=== PATIENT | male | born 1960 | race Caucasian/White ===

== ENCOUNTER 2024-03-10 09:01 | Emergency (ER) | payer OTHER ==
[~2024-03-10] VITALS: Ht 177.8 cm; Wt 113.3 kg
[2024-03-10 09:05] VITALS: BP 155/95; PULSE 108; RESP 16; TEMP 98; O2SAT 98
[2024-03-10] MEDS ORDERED: TRAM50TA2 PO (09:25)
== END 2024-03-10 09:55 | disposition home or self-care (01) ==
LOC: ER 09:02
DX: M25.511 Pain in right shoulder (principal)
CPT/HCPCS: 99283

== ENCOUNTER 2024-03-20 12:24 | Outpatient (CLI) | payer OTHER | END 2024-03-20 23:59 | disposition home or self-care (01) | LOC: MRI 12:24 | PROVIDERS: ATTEND Family Medicine | DX: S46.001A Unspecified injury of muscle(s) and tendon(s) of the rotator cuff of right shoulder, initial encounter (principal); M25.511 Pain in right shoulder; X58.XXXA Exposure to other specified factors, initial encounter; Y93.89 Activity, other specified; Y92.89 Other specified places as the place of occurrence of the external cause; Y99.8 Other external cause status | CPT/HCPCS: 73221 ==

== ENCOUNTER 2024-11-05 05:40 | Observation (INO) | payer OTHER ==
[2024-10-30 16:19] LABS: BASOPHILS # (AUTO) 0.1 X10'3 (0-0.2); EOSINOPHILS # (AUTO) 0.2 X10'3 (0-0.9); EOSINOPHILS % (AUTO) 2.7 % (0-6); LYMPHOCYTES # (AUTO) 1.5 X10'3 (1.1-4.8); LYMPHOCYTES % (AUTO) 21.4 % (21-51); MEAN CORPUSCULAR HEMOGLOBIN 26.3 PG (27.0-31.0); MEAN CORPUSCULAR VOLUME 79.8 FL (78-98); MEAN PLATELET VOLUME 9.1 FL (7.4-10.4); MONOCYTES # (AUTO) 0.5 X10'3 (0-0.9); MONOCYTES % (AUTO) 6.8 % (2-12); NEUTROPHILS # (AUTO) 4.9 X10'3 (1.8-7.7); NEUTROPHILS % (AUTO) 68.1 % (42-75); PRE OP HEMOGLOBIN 12.5 g/dL (14.0-17.9); PRE OP PLATELET COUNT 275 X10'3 (140-440); PRE OP WHITE BLOOD COUNT 7.3 10'3 (4.8-10.8); RED BLOOD COUNT 4.76 X10'6 (4.70-6.10)
[2024-10-30 16:20] LABS: BILIRUBIN,URINE NEGATIVE (Neg); CLARITY,URINE CLEAR (Clear); COLOR,URINE YELLOW (Yellow); GLUCOSE, URINE NEGATIVE (Neg); KETONES,URINE NEGATIVE (Neg); LEUKOCYTE ESTERASE ,URINE NEGATIVE (Neg); NITRITES, URINE NEGATIVE (Neg); OCCULT BLOOD,URINE NEGATIVE (Neg); PROTEIN,URINE NEGATIVE (Neg); UROBILINOGEN,URINE 0.2 E.U/dL (0.2-1.0)
[2024-10-30 16:28] LABS: UA COLLECTION TYPE CLN CATCH MIDSTREAM
[2024-10-30 16:40] LABS: ALBUMIN 3.7 G/DL (3.4-5.0); ALKALINE PHOSPHATASE 105 IU/L (46-116); BLOOD UREA NITROGEN 17 MG/DL (7-18); BUN/CREATININE RATIO 15.5 (10.0-20.0); CHLORIDE 104 MMOL/L (99-107); PRE OP ALT 42 U/L (30-65); PRE OP ANION GAP 12 (8-16); PRE OP AST 26 U/L (10-37); PRE OP BILIRUB, TOTAL 0.2 MG/DL (0.0-1.0); PRE OP GLUCOSE 99 MG/DL (70-104); PRE OP POTASSIUM 4.1 MMOL/L (3.4-5.1); PRE OP PROTIME 10.6 SECONDS (9.0-12.0); PRE OP SODIUM 144 MMOL/L (135-145); TOTAL CARBON DIOXIDE 28.4 MMOL/L (24-32); TOTAL PROTEIN 7.5 G/DL (6.4-8.2); eGFR 67 ML/MIN
[2024-11-05] VITALS (21 sets, daily range): BP systolic 111–153; BP diastolic 49–95; PULSE 76–110; RESP 11–18; TEMP 97.5–98.2; O2SAT 90–100
[~2024-11-05] VITALS: Ht 177.8 cm; Wt 106.4 kg
[2024-11-05] MEDS: tranexamic acid 1gm/0.7% sal. 100 ML IV ONE (05:30)
[2024-11-05] MEDS: ceFAZolin 2gm in dextrose, iso 50 ML IV ONE (05:30)
[~2024-11-05 05:40] MED LIST: CYAN100T47 PO; FOLI0.4T6 PO; IRON PO; MESA4ENE4 RC; MULT-1217 PO; PYRI100T10 PO; RABE20TA32 PO; SACC250C9 PO
[2024-11-05] MEDS: famotidine 20mg tablet PO ONE (06:35)
[2024-11-05] MEDS: ringers solution, lacted 1,000 ML IV SCH (06:35)
[2024-11-05] MEDS ORDERED: vancomycin 1,000mg inj ONE (07:15)
[2024-11-05] MEDS ORDERED: fentaNYL/PF 50MCG/1 ML 2ML syringe ONE (07:18)
[2024-11-05] MEDS ORDERED: midazolam 1 mg/ML 2ml injection ONE (07:19)
[2024-11-05] MEDS ORDERED: rocuronium 10mg/ml inj IV ONE (07:19)
[2024-11-05] MEDS ORDERED: propofol inj 20 ML IV ONE (07:19)
[2024-11-05] MEDS ORDERED: cloNIDine hcl/PF 100mcg/ml inj ONE (07:21)
[2024-11-05] MEDS ORDERED: ROPIVAcaine 0.5% (5mg/ml) 30ml vial ONE (07:29)
[2024-11-05] MEDS ORDERED: acetaminophen 325mg tablet PO PRN (07:35)
[2024-11-05] MEDS ORDERED: naloxone 0.4 mg/ml inj IV PRN (07:35)
[2024-11-05] MEDS ORDERED: diphenhydrAMINE 25mg capsule PO PRN (07:35)
[2024-11-05] MEDS ORDERED: ondansetron/PF 4mg/2ml inj IV PRN ×2 (07:35→11:35)
[2024-11-05] MEDS ORDERED: bisacodyl 10mg suppository rectal RC PRN (07:35)
[2024-11-05] MEDS ORDERED: dexamethasone sod phosphate 4mg/ml inj. ONE (09:30)
[2024-11-05] MEDS ORDERED: ondansetron/PF 4mg/2ml inj ONE (09:30)
[2024-11-05] MEDS ORDERED: glycopyrrolate 0.2mg/ml inj ONE (09:33)
[2024-11-05] MEDS ORDERED: neostigmine methylsulfate 1 MG/ML 10ml vial ONE (09:33)
[2024-11-05] MEDS: potassium cl 20mEq in 1/2 NS 1,000 ML IV SCH (10:15)
[2024-11-05] MEDS ORDERED: morphine 2 MG/ML inj. syringe IV PRN (11:35)
[2024-11-05] MEDS ORDERED: proCHLORperazine 10 MG/2 ml inj IV PRN (11:35)
[2024-11-05] MEDS ORDERED: morphine 4 MG/ML inj SYRINge IV PRN (11:35)
[2024-11-05] MEDS ORDERED: meperidine/PF 25mg/ml syringe IV PRN ×3 (11:35)
[2024-11-05] MEDS ORDERED: ringers solution, lacted 1,000 ML IV SCH (11:35)
[2024-11-05] MEDS: HYDROcodone/acetaminophen 5mg/325mg tablet PO PRN (11:43)
[2024-11-05] MEDS: ceFAZolin 2gm in dextrose, iso 50 ML IV SCH (16:19)
[2024-11-05] MEDS: folic acid 0.4mg tablet PO SCH (21:30)
[2024-11-05] MEDS: pyridoxine 50mg tablet PO SCH (21:31)
[2024-11-06 03:00] VITALS: BP 133/79; PULSE 97; RESP 18; TEMP 99.3; O2SAT 94
[2024-11-06] MEDS: HYDROcodone/acetaminophen 5mg/325mg tablet PO PRN (03:29)
[2024-11-06 04:19] LABS: BASOPHILS # (AUTO) 0.1 X10'3 (0-0.2); BASOPHILS % (AUTO) 0.3 % (0-1); EOSINOPHILS % (AUTO) 0 % (0-6); LYMPHOCYTES # (AUTO) 1.3 X10'3 (1.1-4.8); LYMPHOCYTES % (AUTO) 8.1 % (21-51); MEAN CORPUSCULAR HEMOGLOBIN 25.9 PG (27.0-31.0); MEAN CORPUSCULAR HGB CONC 32.4 g/dL (33.0-36.5); MEAN CORPUSCULAR VOLUME 79.8 FL (78-98); MEAN PLATELET VOLUME 8.8 FL (7.4-10.4); MONOCYTES # (AUTO) 1.1 X10'3 (0-0.9); NEUTROPHILS # (AUTO) 13.2 X10'3 (1.8-7.7); NEUTROPHILS % (AUTO) 84.6 % (42-75); PLATELET COUNT 237 X10'3 (140-440); RED BLOOD COUNT 4.26 X10'6 (4.70-6.10); RED CELL DISTRIBUTION WIDTH 18.1 % (11.5-14.5); WHITE BLOOD COUNT 15.7 X10'3 (4.5-11.0)
[2024-11-06 04:40] LABS: ALANINE AMINOTRANSFERASE 32 U/L (12-78); ALBUMIN/GLOBULIN RATIO 0.9 (1.1-1.5); ALKALINE PHOSPHATASE 74 IU/L (46-116); ANION GAP 10 (8-16); ASPARTATE AMINO TRANSFERASE 31 U/L (10-37); BILIRUBIN,TOTAL 0.2 MG/DL (0.1-1.0); BLOOD UREA NITROGEN 20 MG/DL (7-18); BUN/CREATININE RATIO 17.4 (10.0-20.0); CALCIUM 9.4 MG/DL (8.5-10.1); CHLORIDE 105 MMOL/L (99-107); CREATININE 1.15 MG/DL (0.60-1.10); GLUCOSE 118 MG/DL (70-104); SODIUM 139 MMOL/L (135-145); TOTAL CARBON DIOXIDE 24.5 MMOL/L (24-32); TOTAL PROTEIN 6.5 G/DL (6.4-8.2); eCRCL 66 ML/MIN; eGFR 64 ML/MIN
[2024-11-06] MEDS: magnesium hydroxide 30ml (MOM) UD suspension PO PRN (05:23)
[2024-11-06 06:00] VITALS: BP 140/81; PULSE 96; RESP 16; TEMP 98.7; O2SAT 96
[2024-11-06] MEDS: pantoprazole 40mg Tablet.DR PO SCH (07:00)
[2024-11-06] MEDS: aspirin 325mg tablet PO SCH (07:00)
[2024-11-06 10:00] VITALS: BP 131/81; PULSE 119; RESP 17; TEMP 98.4; O2SAT 93
[2024-11-07] MEDS ORDERED: IRON 65 MG PO SCH (08:00)
[2024-11-07] MEDS ORDERED: MESALAMINE 4 GM/60 ML RC SCH (08:00)
== END 2024-11-06 11:30 | disposition home or self-care (01) ==
LOC: PAS 05:40 → PACU 07:41 → ORTHO 4S 11:27
PROVIDERS: ADMIT Specialist; ATTEND Specialist
DX: M19.011 Primary osteoarthritis, right shoulder (principal); M75.121 Complete rotator cuff tear or rupture of right shoulder, not specified as traumatic; R79.1 Abnormal coagulation profile; Z79.899 Other long term (current) drug therapy; Z98.890 Other specified postprocedural states
CPT/HCPCS: 23430; 23472; 36415; 71046; 73030; 76000; 80053; 81003; 82948; 85025; 85610; 85730; 86885; 86900; 86901; 87081; 96365; 96366; 97110; 97161; 97535; C1776; G0378; J0690; J0735; J1100; J2250; J2405; J2704; J2710; J2795; J3010; J3370; J3480; J3490; J7120; A4565; A4618; A6449; A6455; A7000